=== PATIENT | female | born 1970 | race Two or more races ===

== ENCOUNTER 2022-08-16 08:16 | Day surgery (SDC) | payer OTHER ==
[~2022-08-16] VITALS: Ht 165.1 cm; Wt 65.8 kg
[2022-08-16] MEDS ORDERED: OXYC1TAB9 PO (13:52)
== END 2022-08-16 16:25 | disposition home or self-care (01) ==
LOC: CIR.AMB 08:16
PROVIDERS: ATTEND Surgery
DX: K62.5 Hemorrhage of anus and rectum (principal); K64.4 Residual hemorrhoidal skin tags; K64.8 Other hemorrhoids; K62.89 Other specified diseases of anus and rectum; Z88.6 Allergy status to analgesic agent; Z20.822 Contact with and (suspected) exposure to COVID-19

== ENCOUNTER 2022-08-27 13:23 | Inpatient (IN) | payer OTHER ==
[~2022-08-27] VITALS: Ht 165.1 cm; Wt 65.8 kg
[~2022-08-27 13:23] MED LIST: OXYC1TAB9 PO
[2022-08-28] MEDS ORDERED: LISINOPRIL10 MG (10:53)
[2022-08-31] MEDS ORDERED: INTEGRA F CAPS1 EACH PO (12:04)
[2022-08-31] MEDS ORDERED: PEPCID AC20 MG PO (12:04)
== END 2022-08-31 14:06 | disposition home or self-care (01) | DRG 378 ==
LOC: ER 13:23 → ICU 16:49 → SURG 16:49 → SURH 16:49 → ICU 08-28 17:53 → SURG 08-30 14:25
PROVIDERS: ADMIT Surgery; ATTEND Surgery
PROC: 0DJD8ZZ Inspection of Lower Intestinal Tract, Via Natural or Artificial Opening Endoscopic (ICD-10-PCS; principal; 2022-08-28)
PROC: 30233N1 Transfusion of Nonautologous Red Blood Cells into Peripheral Vein, Percutaneous Approach (ICD-10-PCS; 2022-08-28)
PROC: 4A12X4Z Monitoring of Cardiac Electrical Activity, External Approach (ICD-10-PCS; 2022-08-28)
PROC: CD271ZZ Tomographic (Tomo) Nuclear Medicine Imaging of Gastrointestinal Tract using Technetium 99m (Tc-99m) (ICD-10-PCS; 2022-08-29)
PROC: 0DB98ZX Excision of Duodenum, Via Natural or Artificial Opening Endoscopic, Diagnostic (ICD-10-PCS; 2022-08-31)
PROC: 0DB78ZX Excision of Stomach, Pylorus, Via Natural or Artificial Opening Endoscopic, Diagnostic (ICD-10-PCS; 2022-08-31)
PROC: 0DB68ZX Excision of Stomach, Via Natural or Artificial Opening Endoscopic, Diagnostic (ICD-10-PCS; 2022-08-31)
DX: K92.2 Gastrointestinal hemorrhage, unspecified (principal); D62 Acute posthemorrhagic anemia; R59.0 Localized enlarged lymph nodes; Z98.890 Other specified postprocedural states